=== PATIENT | female | born 1960 | race Caucasian/White ===

== ENCOUNTER 2021-03-31 10:21 | Emergency (ER) | payer MEDICARE ==
[2021-03-31 11:54] LABS: #Basophils 0.1 10x3/uL (0.0-0.2); #Eosinphils 0.2 10x3/uL (0.0-0.5); #Monocytes 0.6 10x3/uL (0.0-1.1); #Neutrophils 3.9 10x3/uL (1.5-8.4); %Basophils 0.6 % (0.0-2.0); %Eosinophils 2.4 % (0.0-6.0); %Lymphocytes 38.9 % (18.0-47.0); %Monocytes 8.1 % (0.0-10.0); %Neutrophils 49.7 % (40.0-75.0); Mean Corpuscular HGB CONC 32.9 g/dL (32.0-36.0); Mean Corpuscular Hemoglobin 31.9 pg (27.0-33.0); Mean Corpuscular Volume 96.8 fl (81.6-98.3); Mean Platelet Volume 9.5 fl (7.4-10.4); Platelet Count 378 10x3/uL (150-450); RBC Distribution Width 13.7 % (11.5-14.5); Red Blood Cell (RBC) Count 4.08 10x6/uL (3.90-5.03); White Blood Cell (WBC) Count 7.8 10x3/uL (3.5-10.5)
[2021-03-31 12:06] LABS: ALT (SGPT) 21 U/L (8-55); AST (SGOT) 26 U/L (5-34); Albumin 3.8 g/dL (3.4-4.8); Alkaline Phosphatase 95 U/L (40-110); Anion Gap 14 mmol/L (10-20); BUN (Urea Nitrogen) 13 mg/dL (9.8-20.1); Bilirubin, Total 0.3 mg/dL (0.2-1.2); Calc. Creatinine Clearance 0 mL/min (70-130); Calcium 9.3 mg/dL (7.8-10.44); Carbon Dioxide 24 mmol/L (23-31); Chloride 108 mmol/L (98-107); Globulin 2.6 g/dL (2.4-3.5); Glucose 86 mg/dL (80-115); Lipase 23 U/L (8-78); Potassium 3.4 mmol/L (3.5-5.1); Protein, Total 6.4 g/dL (5.8-8.1); Sodium 143 mmol/L (136-145)
== END 2021-03-31 13:24 | disposition home or self-care (01) ==
LOC: CSHERS 10:21
DX: R10.10 Upper abdominal pain, unspecified (principal); R14.0 Abdominal distension (gaseous); F17.210 Nicotine dependence, cigarettes, uncomplicated; Z79.899 Other long term (current) drug therapy
CPT/HCPCS: 71045; 74177; 80053; 83690; 84484; 85025; 93005

== ENCOUNTER 2021-06-14 12:15 | Emergency (ER) | payer MEDICARE ==
[2021-06-14] MEDS ORDERED: Cyclobenzaprine 10 MG TAB ONE (13:31)
[2021-06-14] MEDS ORDERED: Ketorolac Tromethamine 30 MG/ML VIAL ONE (13:31)
[2021-06-14 13:53] LABS: #Basophils 0.1 10x3/uL (0.0-0.2); #Eosinphils 0.2 10x3/uL (0.0-0.5); #Monocytes 1.1 10x3/uL (0.0-1.1); #Neutrophils 5.8 10x3/uL (1.5-8.4); %Basophils 0.6 % (0.0-2.0); %Eosinophils 2.1 % (0.0-6.0); %Lymphocytes 31.9 % (18.0-47.0); %Monocytes 10.6 % (0.0-10.0); %Neutrophils 54.3 % (40.0-75.0); Hemoglobin 11.7 g/dL (12.0-15.5); Mean Corpuscular HGB CONC 33.1 g/dL (32.0-36.0); Mean Corpuscular Hemoglobin 31.5 pg (27.0-33.0); Mean Corpuscular Volume 95.2 fl (81.6-98.3); Mean Platelet Volume 9.1 fl (7.4-10.4); Platelet Count 344 10x3/uL (150-450); RBC Distribution Width 14.4 % (11.5-14.5); Red Blood Cell (RBC) Count 3.72 10x6/uL (3.90-5.03); White Blood Cell (WBC) Count 10.7 10x3/uL (3.5-10.5)
[2021-06-14 14:07] LABS: ALT (SGPT) 29 U/L (8-55); AST (SGOT) 28 U/L (5-34); Albumin 3.5 g/dL (3.4-4.8); Alkaline Phosphatase 85 U/L (40-110); Anion Gap 15 mmol/L (10-20); BUN (Urea Nitrogen) 20 mg/dL (9.8-20.1); Bilirubin, Total 0.3 mg/dL (0.2-1.2); Calc. Creatinine Clearance 0 mL/min (70-130); Calcium 8.2 mg/dL (7.8-10.44); Carbon Dioxide 18 mmol/L (23-31); Chloride 112 mmol/L (98-107); Globulin 1.9 g/dL (2.4-3.5); Glucose 88 mg/dL (80-115); Potassium 4.3 mmol/L (3.5-5.1); Protein, Total 5.4 g/dL (5.8-8.1); Sodium 141 mmol/L (136-145)
[2021-06-14] MEDS ORDERED: Acetaminophen 500 MG TAB ONE (15:21)
== END 2021-06-14 16:11 | disposition home or self-care (01) ==
LOC: CSHERS 12:15
DX: S32.019A Unspecified fracture of first lumbar vertebra, initial encounter for closed fracture (principal); S80.12XA Contusion of left lower leg, initial encounter; S80.11XA Contusion of right lower leg, initial encounter; K58.9 Irritable bowel syndrome, unspecified; F17.210 Nicotine dependence, cigarettes, uncomplicated; Z79.899 Other long term (current) drug therapy; W10.9XXA Fall (on) (from) unspecified stairs and steps, initial encounter
CPT/HCPCS: 71260; 74177; 80053; 85025; 96374; J1885

== ENCOUNTER 2021-07-03 14:01 | Inpatient (IN) | payer MEDICARE ==
[2021-07-03 14:44] LABS: Platelet Count 476 10x3/uL (150-450)
[2021-07-03 14:45] LABS: #Monocytes 1.7 10x3/uL (0.0-1.1); #Neutrophils 13.1 10x3/uL (1.5-8.4); %Basophils 0.2 % (0.0-2.0); %Lymphocytes 11.6 % (18.0-47.0); %Monocytes 9.9 % (0.0-10.0); %Neutrophils 77.6 % (40.0-75.0); Mean Corpuscular Hemoglobin 31.3 pg (27.0-33.0); Mean Corpuscular Volume 94.7 fl (81.6-98.3); Mean Platelet Volume 9.1 fl (7.4-10.4); RBC Distribution Width 14.9 % (11.5-14.5); Red Blood Cell (RBC) Count 4.16 10x6/uL (3.90-5.03); White Blood Cell (WBC) Count 16.9 10x3/uL (3.5-10.5)
[2021-07-03 14:52] LABS: Acetaminophen Less than 6.0 mcg/mL (10.0-30.0); Alcohol Less than 10 mg/dL (Less than 10); CK (CPK) 285 U/L (29-168); Lipase 80 U/L (8-78); Salicylate Less than 8.0 mg/dL (15.0-30.0)
[2021-07-03 15:02] LABS: Bilirubin Neg (Negative); Blood, Urine 50 (Negative); Clarity Clear (Clear); Glucose, Urine (Dipstick) Normal (Negative); Ketone, Urine 150 mg/dL (Negative); Leukocyte 500 (Negative); Nitrite Negative (Negative); Protein, Urine (Dipstick) 30 mg/dl (Neg-Trace); Specific Gravity, Urine 1.015 (1.002-1.036); Urobilinogen Normal mg/dL (Less than 2)
[2021-07-03 15:11] LABS: Amphetamine Not Detected (NotDetected); Bacteria/HPF 4+ HPF (None Seen); Barbiturates Screen Not Detected (NotDetected); Benzodiazepine Screen Detected (NotDetected); Cocaine Metabolite Screen Not Detected (NotDetected); Methadone Not Detected (NotDetected); Methamphetamine Not Detected (NotDetected); Opiate Screen Not Detected (NotDetected); Oxycodone Screen Not Detected (NotDetected); Phencyclidine (PCP) Not Detected (NotDetected); Squamous Epithelial 0-3 HPF (0-3); THC/Cannabinoid Screen Detected (NotDetected); Tricyclic Screen Detected (NotDetected)
[2021-07-03 15:18] LABS: ALT (SGPT) 17 U/L (8-55); AST (SGOT) 23 U/L (5-34); Alkaline Phosphatase 101 U/L (40-110); Anion Gap 16 mmol/L (10-20); BUN (Urea Nitrogen) 25 mg/dL (9.8-20.1); Bilirubin, Total 0.5 mg/dL (0.2-1.2); Calc. Creatinine Clearance 0 mL/min (70-130); Calcium 9.4 mg/dL (7.8-10.44); Carbon Dioxide 20 mmol/L (23-31); Chloride 111 mmol/L (98-107); Globulin 2.1 g/dL (2.4-3.5); Glucose 107 mg/dL (80-115); Potassium 3.1 mmol/L (3.5-5.1); Protein, Total 6.1 g/dL (5.8-8.1); Sodium 144 mmol/L (136-145)
[2021-07-03] MEDS ORDERED: Cefepime 2 GM VIAL ONE (16:08)
[2021-07-03] MEDS ORDERED: cefTRIAXone\\ROCEPHIN 2 GM VIAL ONE (16:12)
[2021-07-03 17:56] VITALS: BMI 23.7
[2021-07-03] MEDS ORDERED: Ondansetron ODT 4 MG TAB PO PRN (19:07)
[2021-07-04 03:50] LABS: #Monocytes 1.3 10x3/uL (0.0-1.1); #Neutrophils 7.2 10x3/uL (1.5-8.4); %Basophils 0.3 % (0.0-2.0); %Eosinophils 0.2 % (0.0-6.0); %Lymphocytes 23.3 % (18.0-47.0); %Monocytes 11.6 % (0.0-10.0); %Neutrophils 64.1 % (40.0-75.0); Hemoglobin 11.5 g/dL (12.0-15.5); Mean Corpuscular HGB CONC 33.2 g/dL (32.0-36.0); Mean Corpuscular Hemoglobin 31.7 pg (27.0-33.0); Mean Corpuscular Volume 95.3 fl (81.6-98.3); Mean Platelet Volume 8.8 fl (7.4-10.4); Platelet Count 431 10x3/uL (150-450); RBC Distribution Width 14.7 % (11.5-14.5); Red Blood Cell (RBC) Count 3.63 10x6/uL (3.90-5.03); White Blood Cell (WBC) Count 11.2 10x3/uL (3.5-10.5)
[2021-07-04 03:53] LABS: Anion Gap 16 mmol/L (10-20); BUN (Urea Nitrogen) 19 mg/dL (9.8-20.1); Calc. Creatinine Clearance 80 mL/min (70-130); Calcium 8.5 mg/dL (7.8-10.44); Carbon Dioxide 19 mmol/L (23-31); Chloride 110 mmol/L (98-107); Glucose 90 mg/dL (80-115); Sodium 142 mmol/L (136-145)
[2021-07-04 04:11] LABS: Potassium 2.9 mmol/L (3.5-5.1)
[2021-07-04] MEDS: Sodium Chloride 0.9% 1,000 ML IV SCH ×2 (05:01→11:36)
[2021-07-04 05:09] LABS: Magnesium 1.7 mg/dL (1.6-2.6)
[2021-07-04] MEDS: Potassium Chloride 20 MEQ in Premix Bag 1 BAG IVPB SCH ×3 (05:10→08:34)
[2021-07-04] MEDS ORDERED: Thiamine HCl 200 MG/2 ML VIAL SLOW IVP SCH (06:00)
[2021-07-04] MEDS ORDERED: Potassium Chloride 20 MEQ TAB PO SCH (07:30)
[2021-07-04] MEDS: Multivitamins, Adult 10 ML, Folic Acid 1 MG in Dextrose 5 %-0.45 % NaCl 1,000 ML IV SCH (08:32)
[2021-07-04] MEDS ORDERED: Multivitamins, Adult 10 ML, Folic Acid 1 MG, Thiamine HCl 100 MG in Dextrose 5 %-0.45 %... IV SCH (09:00)
[2021-07-04] MEDS ORDERED: Enoxaparin Sodium 40 MG/0.4 ML SYRINGE SC SCH (09:00)
[2021-07-04] MEDS ORDERED: Nitrofurantoin Macrocrystal 50 MG CAP PO SCH (11:15)
[2021-07-04 16:28] LABS: SARS-CoV-2 PCR by NAA Not Detected (NotDetected)
[2021-07-04] MEDS ORDERED: Amitriptyline HCl 100 MG TAB PO SCH ×2 (21:00)
[2021-07-04] MEDS ORDERED: Temazepam 15 MG CAP PO SCH (21:00)
[2021-07-04] MEDS: Nitrofurantoin Macrocrystal 50 MG CAP PO SCH (21:05)
[2021-07-05] MEDS: Sodium Chloride 0.9% 1,000 ML IV SCH ×3 (00:33→21:12)
[2021-07-05 05:10] LABS: #Eosinphils 0.1 10x3/uL (0.0-0.5); #Monocytes 1.4 10x3/uL (0.0-1.1); #Neutrophils 6.2 10x3/uL (1.5-8.4); %Basophils 0.2 % (0.0-2.0); %Eosinophils 0.9 % (0.0-6.0); %Lymphocytes 27.9 % (18.0-47.0); %Neutrophils 57.4 % (40.0-75.0); Hemoglobin 11.2 g/dL (12.0-15.5); Mean Corpuscular HGB CONC 33.3 g/dL (32.0-36.0); Mean Corpuscular Hemoglobin 31.8 pg (27.0-33.0); Mean Corpuscular Volume 95.5 fl (81.6-98.3); Mean Platelet Volume 9.2 fl (7.4-10.4); Platelet Count 413 10x3/uL (150-450); RBC Distribution Width 14.4 % (11.5-14.5); Red Blood Cell (RBC) Count 3.52 10x6/uL (3.90-5.03); White Blood Cell (WBC) Count 10.8 10x3/uL (3.5-10.5)
[2021-07-05 05:25] LABS: ALT (SGPT) 19 U/L (8-55); AST (SGOT) 33 U/L (5-34); Albumin 3.4 g/dL (3.4-4.8); Alkaline Phosphatase 95 U/L (40-110); Anion Gap 14 mmol/L (10-20); BUN (Urea Nitrogen) 9 mg/dL (9.8-20.1); Bilirubin, Total 0.7 mg/dL (0.2-1.2); CK (CPK) 568 U/L (29-168); Calc. Creatinine Clearance 85 mL/min (70-130); Calcium 8.1 mg/dL (7.8-10.44); Carbon Dioxide 18 mmol/L (23-31); Chloride 110 mmol/L (98-107); Globulin 2.1 g/dL (2.4-3.5); Glucose 94 mg/dL (80-115); Magnesium 1.6 mg/dL (1.6-2.6); Potassium 3.1 mmol/L (3.5-5.1); Protein, Total 5.5 g/dL (5.8-8.1); Sodium 139 mmol/L (136-145)
[2021-07-05 05:31] LABS: Phosphorus 1.9 mg/dL (2.3-4.7)
[2021-07-05 05:36] LABS: Syphilis Antibody Nonreactive (Nonreactive); Syphilis Antibody Index 0.04 S/CO (<1.00 Non-Reactive); Thyroid Stimulating Hormone 0.3581 uIU/mL (0.35-4.94)
[2021-07-05] MEDS ORDERED: Potassium Chloride 10 MEQ in Premix Bag 1 BAG IVPB SCH (06:30)
[2021-07-05] MEDS ORDERED: Potassium Chloride 20 MEQ TAB PO SCH (06:30)
[2021-07-05] MEDS ORDERED: Lactated Ringer's 1,000 ML IV SCH (06:30)
[2021-07-05] MEDS: PHOS-NAK 1 PKT PACK PO SCH ×2 (08:03→21:08)
[2021-07-05] MEDS: Potassium Chloride 20 MEQ TAB PO SCH ×2 (08:03→17:43)
[2021-07-05] MEDS: Nitrofurantoin Macrocrystal 50 MG CAP PO SCH ×2 (08:03→21:07)
[2021-07-05] MEDS ORDERED: Thiamine HCl 200 MG/2 ML VIAL SLOW IVP SCH (09:00)
[2021-07-05] MEDS: Multivitamins, Adult 10 ML, Folic Acid 1 MG in Dextrose 5 %-0.45 % NaCl 1,000 ML IV SCH (09:03)
[2021-07-05 17:49] LABS: T4 6.1 ug/dL (4.87-11.72)
[2021-07-05] MEDS: Thiamine HCl 500 MG, Admixture Fee 1 EACH in Sodium Chloride 0.9% 50 ML IVPB SCH (20:01)
[2021-07-05] MEDS: Amitriptyline HCl 25 MG TAB PO SCH (21:07)
[2021-07-05] MEDS: Temazepam 15 MG CAP PO SCH (21:07)
[2021-07-06] MEDS: Thiamine HCl 500 MG, Admixture Fee 1 EACH in Sodium Chloride 0.9% 50 ML IVPB SCH ×3 (01:50→18:25)
[2021-07-06] MEDS: Sodium Chloride 0.9% 1,000 ML IV SCH (01:53)
[2021-07-06 05:11] LABS: Hemoglobin 10.5 g/dL (12.0-15.5); Mean Corpuscular HGB CONC 32.8 g/dL (32.0-36.0); Mean Corpuscular Hemoglobin 31.1 pg (27.0-33.0); Mean Corpuscular Volume 94.7 fl (81.6-98.3); Mean Platelet Volume 9.2 fl (7.4-10.4); Platelet Count 329 10x3/uL (150-450); RBC Distribution Width 14.6 % (11.5-14.5); Red Blood Cell (RBC) Count 3.38 10x6/uL (3.90-5.03); White Blood Cell (WBC) Count 8.6 10x3/uL (3.5-10.5)
[2021-07-06 05:23] LABS: MDiff Complete? YES
[2021-07-06 05:26] LABS: Eosinophils 2 % (0-10); Lymphocytes 48 % (21-51); Monocytes 18 % (0-10); Neutrophil 31 % (42-75)
[2021-07-06 05:29] LABS: Platelet Morphology Comment Appears Adequate; RBC Morphology Normal
[2021-07-06 05:30] LABS: ALT (SGPT) 18 U/L (8-55); AST (SGOT) 29 U/L (5-34); Albumin 2.9 g/dL (3.4-4.8); Alkaline Phosphatase 81 U/L (40-110); Anion Gap 11 mmol/L (10-20); BUN (Urea Nitrogen) 5 mg/dL (9.8-20.1); Bilirubin, Total 0.6 mg/dL (0.2-1.2); CK (CPK) 414 U/L (29-168); Calc. Creatinine Clearance 83 mL/min (70-130); Calcium 7.8 mg/dL (7.8-10.44); Carbon Dioxide 20 mmol/L (23-31); Chloride 117 mmol/L (98-107); Globulin 1.8 g/dL (2.4-3.5); Glucose 86 mg/dL (80-115); Magnesium 1.5 mg/dL (1.6-2.6); Phosphorus 2.6 mg/dL (2.3-4.7); Potassium 3.1 mmol/L (3.5-5.1); Protein, Total 4.7 g/dL (5.8-8.1); Sodium 145 mmol/L (136-145)
[2021-07-06 05:31] LABS: Reflex for Review?? YES
[2021-07-06] MEDS ORDERED: Potassium Chloride 20 MEQ TAB PO SCH (06:30)
[2021-07-06] MEDS: Magnesium 2 GM/50 ML 2 GM in Premix Bag 1 BAG IVPB SCH ×2 (06:34→09:07)
[2021-07-06] MEDS: Enoxaparin Sodium 40 MG/0.4 ML SYRINGE SC SCH (09:08)
[2021-07-06] MEDS: PHOS-NAK 1 PKT PACK PO SCH ×2 (09:11→22:20)
[2021-07-06] MEDS: Nitrofurantoin Macrocrystal 50 MG CAP PO SCH ×2 (09:11→22:18)
[2021-07-06] MEDS: Multivitamins, Adult 10 ML, Folic Acid 1 MG in Dextrose 5 %-0.45 % NaCl 1,000 ML IV SCH (10:05)
[2021-07-06] MEDS: Temazepam 15 MG CAP PO SCH (20:27)
[2021-07-06] MEDS: Amitriptyline HCl 25 MG TAB PO SCH (20:28)
[2021-07-07] MEDS: Thiamine HCl 500 MG, Admixture Fee 1 EACH in Sodium Chloride 0.9% 50 ML IVPB SCH ×3 (01:23→16:48)
[2021-07-07] MEDS ORDERED: Acetaminophen 325 MG TAB PO SCH (03:30)
[2021-07-07 04:35] LABS: #Basophils 0.1 10x3/uL (0.0-0.2); #Eosinphils 0.4 10x3/uL (0.0-0.5); #Neutrophils 3.2 10x3/uL (1.5-8.4); %Basophils 0.7 % (0.0-2.0); %Eosinophils 4.1 % (0.0-6.0); %Lymphocytes 44.5 % (18.0-47.0); %Monocytes 12.1 % (0.0-10.0); %Neutrophils 38.1 % (40.0-75.0); Hemoglobin 11.4 g/dL (12.0-15.5); Mean Corpuscular HGB CONC 33.2 g/dL (32.0-36.0); Mean Corpuscular Hemoglobin 31.4 pg (27.0-33.0); Mean Corpuscular Volume 94.5 fl (81.6-98.3); Mean Platelet Volume 9.5 fl (7.4-10.4); Platelet Count 328 10x3/uL (150-450); RBC Distribution Width 14.6 % (11.5-14.5); Red Blood Cell (RBC) Count 3.63 10x6/uL (3.90-5.03); White Blood Cell (WBC) Count 8.5 10x3/uL (3.5-10.5)
[2021-07-07 04:48] LABS: ALT (SGPT) 22 U/L (8-55); AST (SGOT) 33 U/L (5-34); Albumin 3.1 g/dL (3.4-4.8); Alkaline Phosphatase 83 U/L (40-110); Anion Gap 13 mmol/L (10-20); BUN (Urea Nitrogen) 5 mg/dL (9.8-20.1); Bilirubin, Total 0.5 mg/dL (0.2-1.2); Calc. Creatinine Clearance 78 mL/min (70-130); Calcium 8.2 mg/dL (7.8-10.44); Carbon Dioxide 22 mmol/L (23-31); Chloride 112 mmol/L (98-107); Globulin 1.9 g/dL (2.4-3.5); Glucose 79 mg/dL (80-115); Magnesium 1.9 mg/dL (1.6-2.6); Phosphorus 3.9 mg/dL (2.3-4.7); Potassium 3.3 mmol/L (3.5-5.1); Sodium 144 mmol/L (136-145)
[2021-07-07] MEDS ORDERED: Potassium Chloride 20 MEQ TAB PO SCH (06:15)
[2021-07-07] MEDS ORDERED: Potassium Chloride 20 MEQ in Premix Bag 1 BAG IVPB SCH ×2 (06:15→06:30)
[2021-07-07] MEDS ORDERED: Magnesium 2 GM/50 ML 2 GM in Premix Bag 1 BAG IVPB SCH (06:30)
[2021-07-07] MEDS ORDERED: Acetaminophen 325 MG TAB PO PRN (08:52)
[2021-07-07] MEDS: Lidocaine 5% Patch TD SCH (10:10)
[2021-07-07] MEDS: Enoxaparin Sodium 40 MG/0.4 ML SYRINGE SC SCH (10:11)
[2021-07-07] MEDS: HYDROcodone/Acetaminophen 10/325 mg Tablet PO PRN (10:12)
[2021-07-07] MEDS: PHOS-NAK 1 PKT PACK PO SCH (10:23)
[2021-07-07] MEDS: Nitrofurantoin Macrocrystal 50 MG CAP PO SCH ×2 (10:23→21:03)
[2021-07-07 11:41] LABS: Hemoglobin A1c 4.7 % (4.0-6.0)
[2021-07-07] MEDS: Temazepam 15 MG CAP PO SCH (21:01)
[2021-07-07] MEDS: Amitriptyline HCl 25 MG TAB PO SCH (21:02)
[2021-07-07] MEDS: Transdermal Patch Removal TOP SCH (21:09)
[2021-07-07] MEDS: Senokot S 8.6-50 MG TAB PO PRN (21:12)
[2021-07-08] MEDS: Thiamine HCl 500 MG, Admixture Fee 1 EACH in Sodium Chloride 0.9% 50 ML IVPB SCH ×3 (01:22→18:32)
[2021-07-08] MEDS: HYDROcodone/Acetaminophen 10/325 mg Tablet PO PRN ×2 (03:47→15:11)
[2021-07-08 03:50] LABS: #Eosinphils 0.4 10x3/uL (0.0-0.5); #Neutrophils 5.1 10x3/uL (1.5-8.4); %Basophils 0.4 % (0.0-2.0); %Lymphocytes 29.3 % (18.0-47.0); %Monocytes 10.4 % (0.0-10.0); %Neutrophils 55.6 % (40.0-75.0); Mean Corpuscular HGB CONC 32.9 g/dL (32.0-36.0); Mean Corpuscular Hemoglobin 31.4 pg (27.0-33.0); Mean Corpuscular Volume 95.4 fl (81.6-98.3); Mean Platelet Volume 9.4 fl (7.4-10.4); Platelet Count 323 10x3/uL (150-450); RBC Distribution Width 14.8 % (11.5-14.5); White Blood Cell (WBC) Count 9.2 10x3/uL (3.5-10.5)
[2021-07-08 04:06] LABS: ALT (SGPT) 21 U/L (8-55); AST (SGOT) 28 U/L (5-34); Albumin 3.2 g/dL (3.4-4.8); Alkaline Phosphatase 83 U/L (40-110); Anion Gap 11 mmol/L (10-20); BUN (Urea Nitrogen) 9 mg/dL (9.8-20.1); Bilirubin, Total 0.4 mg/dL (0.2-1.2); Calc. Creatinine Clearance 66 mL/min (70-130); Calcium 8.4 mg/dL (7.8-10.44); Carbon Dioxide 25 mmol/L (23-31); Chloride 110 mmol/L (98-107); Globulin 1.9 g/dL (2.4-3.5); Glucose 102 mg/dL (80-115); Magnesium 1.8 mg/dL (1.6-2.6); Phosphorus 4.3 mg/dL (2.3-4.7); Potassium 3.6 mmol/L (3.5-5.1); Protein, Total 5.1 g/dL (5.8-8.1); Sodium 142 mmol/L (136-145)
[2021-07-08] MEDS: Lidocaine 5% Patch TD SCH (09:52)
[2021-07-08] MEDS: Nitrofurantoin Macrocrystal 50 MG CAP PO SCH ×2 (09:52→21:03)
[2021-07-08] MEDS: Enoxaparin Sodium 40 MG/0.4 ML SYRINGE SC SCH (09:53)
[2021-07-08] MEDS: Amitriptyline HCl 25 MG TAB PO SCH (21:00)
[2021-07-08] MEDS: Temazepam 15 MG CAP PO SCH (21:01)
[2021-07-08] MEDS: Senokot S 8.6-50 MG TAB PO PRN (21:02)
[2021-07-08] MEDS: Polyvinyl Alcohol 1.4%/Povidone 0.6% Opth Drops EA EYE SCH (21:03)
[2021-07-08] MEDS: Transdermal Patch Removal TOP SCH (21:04)
[2021-07-09] MEDS: Thiamine HCl 500 MG, Admixture Fee 1 EACH in Sodium Chloride 0.9% 50 ML IVPB SCH ×3 (02:14→16:59)
[2021-07-09] MEDS: HYDROcodone/Acetaminophen 10/325 mg Tablet PO PRN ×2 (02:16→16:59)
[2021-07-09 05:48] LABS: ALT (SGPT) 25 U/L (8-55); AST (SGOT) 27 U/L (5-34); Albumin 3.3 g/dL (3.4-4.8); Alkaline Phosphatase 93 U/L (40-110); Anion Gap 11 mmol/L (10-20); BUN (Urea Nitrogen) 10 mg/dL (9.8-20.1); Bilirubin, Total 0.5 mg/dL (0.2-1.2); Calc. Creatinine Clearance 60 mL/min (70-130); Calcium 8.9 mg/dL (7.8-10.44); Carbon Dioxide 26 mmol/L (23-31); Chloride 109 mmol/L (98-107); Globulin 2.3 g/dL (2.4-3.5); Glucose 92 mg/dL (80-115); Magnesium 1.8 mg/dL (1.6-2.6); Phosphorus 4.5 mg/dL (2.3-4.7); Potassium 3.8 mmol/L (3.5-5.1); Protein, Total 5.6 g/dL (5.8-8.1); Sodium 142 mmol/L (136-145)
[2021-07-09 05:50] LABS: #Eosinphils 0.4 10x3/uL (0.0-0.5); #Neutrophils 3.4 10x3/uL (1.5-8.4); %Basophils 0.4 % (0.0-2.0); %Eosinophils 4.6 % (0.0-6.0); %Lymphocytes 40.1 % (18.0-47.0); %Monocytes 12.1 % (0.0-10.0); %Neutrophils 42.2 % (40.0-75.0); Hemoglobin 11.5 g/dL (12.0-15.5); Mean Corpuscular HGB CONC 31.9 g/dL (32.0-36.0); Mean Corpuscular Hemoglobin 31.4 pg (27.0-33.0); Mean Corpuscular Volume 98.4 fl (81.6-98.3); Mean Platelet Volume 9.6 fl (7.4-10.4); Platelet Count 350 10x3/uL (150-450); RBC Distribution Width 14.6 % (11.5-14.5); Red Blood Cell (RBC) Count 3.66 10x6/uL (3.90-5.03); White Blood Cell (WBC) Count 8.1 10x3/uL (3.5-10.5)
[2021-07-09 07:52] LABS: HIV (1/2) Antibody/Antigen Non-Reactive (NonReactive)
[2021-07-09] MEDS ORDERED: Ibuprofen 600 MG TAB PO PRN (09:45)
[2021-07-09] MEDS: Nitrofurantoin Macrocrystal 50 MG CAP PO SCH (09:54)
[2021-07-09] MEDS: Lidocaine 5% Patch TD SCH (09:55)
[2021-07-09] MEDS: Enoxaparin Sodium 40 MG/0.4 ML SYRINGE SC SCH (09:56)
[2021-07-09] MEDS: Polyvinyl Alcohol 1.4%/Povidone 0.6% Opth Drops EA EYE SCH ×2 (11:43→21:00)
[2021-07-09] MEDS: ALPRAZolam 0.5 MG TAB PO SCH (20:56)
[2021-07-09] MEDS: Senokot S 8.6-50 MG TAB PO PRN (20:57)
[2021-07-09] MEDS: Amitriptyline HCl 25 MG TAB PO SCH (20:57)
[2021-07-09] MEDS: Temazepam 15 MG CAP PO SCH (20:57)
[2021-07-09] MEDS: Transdermal Patch Removal TOP SCH (21:03)
[2021-07-10] MEDS: Thiamine HCl 500 MG, Admixture Fee 1 EACH in Sodium Chloride 0.9% 50 ML IVPB SCH ×2 (03:08→09:40)
[2021-07-10] MEDS: Polyvinyl Alcohol 1.4%/Povidone 0.6% Opth Drops EA EYE SCH (05:57)
[2021-07-10 06:01] LABS: ALT (SGPT) 23 U/L (8-55); AST (SGOT) 24 U/L (5-34); Albumin 3.4 g/dL (3.4-4.8); Alkaline Phosphatase 91 U/L (40-110); Anion Gap 11 mmol/L (10-20); BUN (Urea Nitrogen) 13 mg/dL (9.8-20.1); Bilirubin, Total 0.4 mg/dL (0.2-1.2); Calc. Creatinine Clearance 53 mL/min (70-130); Calcium 9.2 mg/dL (7.8-10.44); Carbon Dioxide 28 mmol/L (23-31); Chloride 108 mmol/L (98-107); Globulin 2.2 g/dL (2.4-3.5); Glucose 85 mg/dL (80-115); Magnesium 1.9 mg/dL (1.6-2.6); Phosphorus 4.7 mg/dL (2.3-4.7); Potassium 3.4 mmol/L (3.5-5.1); Protein, Total 5.6 g/dL (5.8-8.1); Sodium 144 mmol/L (136-145)
[2021-07-10 06:25] LABS: Hemoglobin 11.7 g/dL (12.0-15.5); Mean Corpuscular HGB CONC 31.9 g/dL (32.0-36.0); Mean Corpuscular Hemoglobin 31.5 pg (27.0-33.0); Mean Corpuscular Volume 98.9 fl (81.6-98.3); Mean Platelet Volume 9.8 fl (7.4-10.4); Platelet Count 319 10x3/uL (150-450); RBC Distribution Width 14.6 % (11.5-14.5); Red Blood Cell (RBC) Count 3.71 10x6/uL (3.90-5.03)
[2021-07-10 08:10] LABS: Eosinophils 3 % (0-10); Lymphocytes 53 % (21-51); Monocytes 15 % (0-10); Reactive Lymphocytes 6 % (0-10)
[2021-07-10 08:11] LABS: Neutrophil 23 % (42-75)
[2021-07-10 08:12] LABS: Platelet Morphology Comment Appears Adequate
[2021-07-10 08:13] LABS: Large Platelets SLIGHT
[2021-07-10 08:14] LABS: Platelet Clumps SLIGHT
[2021-07-10 08:15] LABS: MDiff Complete? YES
[2021-07-10 08:16] LABS: RBC Morphology Normal
[2021-07-10] MEDS: HYDROcodone/Acetaminophen 10/325 mg Tablet PO PRN (08:35)
[2021-07-10] MEDS: ALPRAZolam 0.5 MG TAB PO SCH (09:30)
[2021-07-10] MEDS: Enoxaparin Sodium 40 MG/0.4 ML SYRINGE SC SCH (09:30)
[2021-07-10] MEDS: Lidocaine 5% Patch TD SCH (09:39)
[2021-07-10 12:35] VITALS: BP 107/58; TEMP 98.9
== END 2021-07-10 13:29 | disposition home or self-care (01) | DRG 896 ==
LOC: CSHERS 14:01 → INTOOBSV 16:27 → CSHTELE 16:27 → OBSVTOIN 07-05 17:39
PROVIDERS: ADMIT Hospitalist; ATTEND Family Medicine
PROC: HZ2ZZZZ Detoxification Services for Substance Abuse Treatment (ICD-10-PCS; principal; 2021-07-05)
DX: F10.129 Alcohol abuse with intoxication, unspecified (principal); G93.41 Metabolic encephalopathy; E51.2 Wernicke's encephalopathy; S32.009A Unspecified fracture of unspecified lumbar vertebra, initial encounter for closed fracture; Z20.822 Contact with and (suspected) exposure to COVID-19; F32.A Depression, unspecified; F15.11 Other stimulant abuse, in remission; E87.6 Hypokalemia; M79.671 Pain in right foot; W19.XXXA Unspecified fall, initial encounter; N20.0 Calculus of kidney; R82.81 Pyuria; M79.672 Pain in left foot
CPT/HCPCS: 36415; 36416; 51701; 70450; 70551; 71045; 72131; 76705; 80048; 80053; 80306; 80307; 81003; 81015; 82550; 82607; 82746; 83036; 83605; 83690; 83735; 84100; 84436; 84443; 84484; 85025; 85060; 86780; 87086; 87389; 93005; 96365; 96367; 96375; 96376; G0378; J0692; J0696; J1650; J3370; J3411; J3475; J3480; J7042; J7050; J7120; U0003; U0005

== ENCOUNTER 2022-07-26 08:29 | Emergency (ER) | payer MEDICARE ==
[2022-07-26] MEDS ORDERED: Bacitracin 1 PK ONE (09:01)
== END 2022-07-26 09:05 | disposition home or self-care (01) ==
LOC: CSHERS 08:29
DX: S90.822A Blister (nonthermal), left foot, initial encounter (principal); X58.XXXA Exposure to other specified factors, initial encounter
CPT/HCPCS: 99283